=== PATIENT | female | born 1955 | race American Indian/Alaskan Native ===

== ENCOUNTER 2017-06-15 11:32 | Emergency (ER) | payer OTHER ==
[2017-06-15] MEDS ORDERED: NORCO 10/325 PO ONE (13:07)
--- NOTE | 2017-06-15 13:40 | Emergency Department Report ---
ED Upper Extremity Inj HPI - General Chief Complaint: Extremity Injury, Upper Stated Complaint: FELL HURT RT ARM Time Seen by Provider: 06/15/17 12:42 Source: patient, family Mode of arrival: Ambulatory Limitations: No Limitations - History of Present Illness MD Complaint: Injury to:: right -: Sudden Other Extremity Injury: Wrist: Right Other Injuries: none Handedness: right Place: home Improves With: none Worsens With: none Context: fall Associated Symptoms: denies other symptoms Treatments Prior to Arrival: splint (see home meds for osteop./htn/hpld) - Related Data Previous Rx's Medication Instructions Recorded Last Taken Type traMADol [Ultram] 50 mg PO Q6HR PRN #10 tablet 06/15/17 Unknown Rx Allergies Allergy/AdvReac Type Severity Reaction Status Date / Time No Known Allergies Allergy Unverified 06/15/17 11:46 ED Review of Systems ROS: Stated complaint: FELL HURT RT ARM Other details as noted in HPI Comment: All other systems reviewed and negative Constitutional: no symptoms reported, see HPI Eyes: as per HPI ENT: as per HPI Respiratory: no symptoms reported, see HPI Cardiovascular: as per HPI Endocrine: no symptoms reported, see HPI Gastrointestinal: as per HPI Genitourinary: as per HPI Musculoskeletal: as per HPI, other (r wrist pain sp fall) Skin: as per HPI Neurological: as per HPI Psychiatric: as per HPI Hematological/Lymphatic: as per HPI ED Past Medical Hx - Past Medical History Previous Medical History?: Yes Additional medical history: htn. hpld. osteoporosis - Surgical History Past Surgical History?: No - Family History Family history: no significant - Social History Smoking Status: Never Smoker Substance Use Type: Alcohol - Medications Home Medications: Home Medications Medication Instructions Recorded Confirmed Last Taken Type traMADol [Ultram] 50 mg PO Q6HR PRN #10 tablet 06/15/17 Unknown Rx ED Physical Exam - General Limitations: No Limitations General appearance: alert - Eye Eye exam: Present: normal appearance, PERRL - ENT ENT exam: Present: mucous membranes moist - Neck Neck exam: Present: normal inspection - Respiratory Respiratory exam: Present: normal lung sounds bilaterally - Cardiovascular Cardiovascular Exam: Present: regular rate - GI/Abdominal GI/Abdominal exam: Present: soft - Rectal Rectal exam: Present: deferred - Extremities Exam Extremities exam: Present: tenderness, normal capillary refill - Expanded Upper Extremity Exam Right Elbow exam: Present: normal inspection Forearm Wrist exam: Present: tenderness, swelling, deformity (swelling). Absent : abrasion, laceration, ecchymosis, crepidus, dislocation, erythema, tenderness over anatomical snuff box, pain with axial thumb loading Hand Wrist exam: Present: normal inspection, full ROM. Absent: tenderness, swelling, abrasion, laceration, ecchymosis, deformity, crepidus Neuro motor exam: Present: wrist extension intact, thumb opposition intact, thumb IP flexion intact, thumb adduction intact, fingers 2-5 abduction intact Vascular: Present: normal capillary refill. Absent: pulse deficit radial art, pulse deficit ulnar art, pulse deficit brachial art - Back Exam Back exam: Present: normal inspection - Neurological Exam Neurological exam: Present: alert, oriented X3 - Psychiatric Psychiatric exam: Present: normal affect, normal mood - Skin Skin exam: Present: warm, dry, intact, normal color. Absent: rash ED Course Vital Signs 06/15/17 06/15/17 11:41 13:36 Temperature 98.5 F Pulse Rate 87 Respiratory 24 18 Rate Blood Pressure 136/88 O2 Sat by Pulse 100 Oximetry - Reevaluation(s) Reevaluation #1: 06/15/17 13:51 fall on outstretched had now w r wrist pain n/v intact swelling wrist good ulnar/radial pulse no snuff box tenderness xray noted medicated splint ice dc with ortho follow up ED Medical Decision Making - Radiology Data Radiology results: image reviewed - Medical Decision Making radius fx - Differential Diagnosis ro fx Critical care attestation.: If time is entered above; I have spent that time in minutes in the direct care of this critically ill patient, excluding procedure time. ED Disposition Clinical Impression: Radius fracture, Fall Disposition: DC-01 TO HOME OR SELFCARE Is pt being admited?: No Does the pt Need Aspirin: No Condition: Stable Instructions: Wrist Fracture in Adults (ED) Additional Instructions: ice rest elevate splint sling motrin or tylenol for pain ultram for severe pain follow up ortho brando continue home meds Referrals: PRIMARY CARE, [Primary Care Provider] - 3-5 Days MONET BEAVER MD [Staff Physician] - 3-5 Days JOLENE ARCE MD [Staff Physician] - 3-5 Days Time of Disposition: 13:53
--- NOTE | 2017-06-15 13:42 | XRay Report ---
RIGHT WRIST THREE VIEWS: 06/15/17 11:46:00 CLINICAL: Fall on the outstretched hand. FINDINGS: Mild osteopenia. Subtle comminuted fracture of the distal radius with a predominant transverse component. However, vertical extension into the radiocarpal joint is identified on the oblique view. No callus. The carpal bones are intact. The distal ulna is intact. Normal soft tissues. IMPRESSION: Acute traumatic nondisplaced comminuted closed fracture of the distal radius. No carpal fracture.
[2017-06-15] MEDS ORDERED: TORADOL IM ONE (13:54)
[2017-06-15 14:18] VITALS: BP 131/81
== END 2017-06-15 14:21 | disposition home or self-care (01) ==
LOC: ED 11:32
DX: S52.501A Unspecified fracture of the lower end of right radius, initial encounter for closed fracture (principal); X58.XXXA Exposure to other specified factors, initial encounter; Y93.9 Activity, unspecified; Y92.9 Unspecified place or not applicable; Y99.9 Unspecified external cause status
CPT/HCPCS: 29125; 73110; 96372; 99283; J1885